=== PATIENT | female | born 1995 | race Caucasian/White ===

== ENCOUNTER 2021-06-13 00:28 | Emergency (ER) | payer MEDICAID ==
[2021-06-13 01:38] LABS: BASO # 0.03 (0.02-0.10); EOS # 0.03 (0.04-0.40); EOS % 0.3 % (1.0-5.0); HEMATOCRIT 40.1 % (37.0-47.0); HEMOGLOBIN 13.2 g/dL (12.5-16.0); LYMPH# 1.94 (1.50-4.00); MEAN CELL VOLUME 88 fl (78-100); MEAN CORPUSCULAR HEMOGLOBIN 29 pg (27-31); MEAN CORPUSCULAR HGB CONC 33 g/dL (33-37); MONO # 0.42 (0.20-0.80); NEU # 7.83 (1.40-6.50); PLATELET COUNT 259 K/mm3 (130-400); RED BLOOD COUNT 4.54 M/mm3 (4.10-5.30); RED CELL DISTRIBUTION WIDTH 13.4 % (11.5-14.5); WHITE BLOOD COUNT 10.3 K/mm3 (4.8-10.8)
[2021-06-13 01:45] LABS: POTASSIUM 3.6 mmol/L (3.5-5.1)
[2021-06-13 01:46] LABS: CALCIUM 9.9 mg/dL (8.3-10.5)
[2021-06-13 01:49] LABS: TOTAL BILIRUBIN 0.6 mg/dL (0.2-1.2)
[2021-06-13 01:56] LABS: URINE APPEARANCE HAZY; URINE BILIRUBIN NEGATIVE (NEGATIVE); URINE BLOOD NEGATIVE (NEGATIVE); URINE COLOR YELLOW; URINE GLUCOSE NEGATIVE (NEGATIVE); URINE KETONE NEGATIVE (NEGATIVE); URINE LEUKOCYTE ESTERASE NEGATIVE (NEGATIVE); URINE NITRATE NEGATIVE (NEGATIVE); URINE PROTEIN(semi-quant) NEGATIVE (NEGATIVE); URINE UROBILINOGEN NORMAL (NORMAL)
[2021-06-13 02:24] VITALS: BP 117/71
== END 2021-06-13 02:24 | disposition home or self-care (01) ==
LOC: ED 00:28
PROVIDERS: Physician Assistant
DX: F41.9 Anxiety disorder, unspecified (principal); R19.7 Diarrhea, unspecified; R11.0 Nausea

== ENCOUNTER → 2022-12-01 | Outpatient (CLI) | payer MEDICAID | LOC: LAB 16:26 | DX: Z01.89 Encounter for other specified special examinations (principal) ==